=== PATIENT | female | born 1990 | race Caucasian/White ===

== ENCOUNTER 2017-06-03 21:25 | Emergency (ER) | payer SELFPAY ==
[2017-06-03] MEDS ORDERED: ONDANSETRON HCL/PF 4 MG/ 2ML VIAL IVP ONE (21:42)
[2017-06-03] MEDS ORDERED: LACTATED RINGERS 1,000 ML IV SCH (21:45)
[2017-06-03] MEDS ORDERED: LACTATED RINGERS 1,000 ML IV ONE (21:55)
[2017-06-03 22:08] LABS: BASOPHILS % 0.7 (0.0-1.5); EOSINOPHILS % 0.6 % (0.0-6.8); MEAN CORPUSCULAR HEMOGLOBIN 33.3 pg (28.0-34.0); MEAN CORPUSCULAR VOLUME 94.9 fl (80.0-100.0); MONOCYTES % 6.1 % (0.0-11.0); NEUTROPHILS # 8.5 # k/uL (1.4-7.7)
[2017-06-03 22:20] LABS: eGFR (African) > 60; eGFR (Non-African) > 60
[2017-06-03 22:33] VITALS: BP 119/66
[2017-06-03] MEDS ORDERED: metroNIDAZOLE 500 MG TABLET PO ONE (22:37)
--- NOTE | 2017-06-03 22:37 | ED Physician Documentation ---
Nausea/Vomiting/Diarrhea - HISTORIAN Historian: patient - HPI Stated Complaint: Nausea/Vomiting/Diarrhea Chief Complaint: Nausea,Vomiting,Diarrhea Additional Information: diarhes x 2 days, vomiting started few hours ago, denies any infectious symptoms , denies bad food. No pain Onset: days ago Duration: waxing, waning Timing: still present Context: denies: out of country travel, bad food, recent trauma Severity: mild Further Comments: no - Associated Symptoms Vomiting: mild. denies: bloody, blood-streaked, bilious, feculent Diarrhea: mild, watery Abdominal Pain: none, cramping - ROS CONST: denies: no problems, recent illness, fever, chills CVS/RESP: denies: shortness of breath, cough GI/: denies: dark urine, problems urinating EYES/ENT: none MS/SKIN/LYMPH: denies: joint pain NEURO/PSYCH: none - PAST HX Past History: none Other History: gall stones Surgeries/Procedures: cholecystectomy, Allergies/Adverse Reactions: Allergies Allergy/AdvReac Type Severity Reaction Status Date / Time No Known Allergies Allergy Unverified 06/03/17 21:38 Home Medications: Ambulatory Orders Medication Instructions Recorded NK [NK] 06/03/17 - SOCIAL HX Smoking History: cigarettes Alcohol Use: occasionally Drug Use: methamphetamines - FAMILY HX Family History: none - VITAL SIGNS Vital Signs: Vital Signs Temp Pulse Resp BP Pulse Ox 98.3 F 92 H 16 119/66 99 06/03/17 21:25 06/03/17 22:32 06/03/17 22:32 06/03/17 22:32 06/03/17 22:32 - REVIEWED ASSESSMENTS Nursing Assessment Reviewed: Yes Vitals Reviewed: Yes ED Results Lab/Radiology - Lab Results Lab Results: Lab Results 06/03/17 06/03/17 06/03/17 21:59 21:59 21:59 WBC 12.50 K/ul H K/ul (4.00-12.00) RBC 3.98 M/ul M/ul (3.90-5.20) Hgb 13.3 g/dL g/dL (12.0-16.0) Hct 37.8 % % (34.5-46.5) MCV 94.9 fl fl (80.0-100.0) MCH 33.3 pg pg (28.0-34.0) MCHC 35.1 g/dL g/dL (30.0-36.0) RDW 13.0 % % (11.3-14.3) Plt Count 199 K/mm3 K/mm3 (130-400) Neut % (Auto) 68.3 % % (39.0-79.0) Lymph % (Auto) 22.6 % % (16.0-50.0) [place] % (Auto) 6.1 % % (0.0-11.0) Eos % (Auto) 0.6 % % (0.0-6.8) Baso % (Auto) 0.7 (0.0-1.5) Neut # (Auto) 8.5 # k/uL H # k/uL (1.4-7.7) Lymph # (Auto) 2.8 # k/uL # k/uL (0.6-4.0) [place] # (Auto) 0.8 # k/uL # k/uL (0.0-0.9) Eos # (Auto) 0.1 # k/uL # k/uL (0.0-0.6) Baso # (Auto) 0.1 # k/uL # k/uL (0.0-0.5) Reactive Lymphs % 1.8 % % (0.0-5.0) Reactive Lymphs # 0.2 # k/uL # k/uL (0.0-0.8) Carbon Dioxide 27 mmol/L mmol/L (20-32) BUN 14 mg/dL mg/dL (10-26) Creatinine 0.6 mg/dL mg/dL (0.4-1.5) Estimated Creat Clear 152 Est GFR ( Amer) > 60 (60 - ) Est GFR (Non-Af Amer) > 60 (60 - ) Glucose 122 mg/dL H mg/dL (70-99) Calcium 9.7 mg/dL mg/dL (8.5-10.5) Total Bilirubin 0.6 mg/dL mg/dL (0.2-1.2) AST 17 U/L U/L (0-41) ALT 41 U/L U/L (0-45) Alkaline Phosphatase 81 U/L U/L (46-116) Total Protein 7.1 g/dL g/dL (6.0-8.5) Albumin 4.4 g/dL g/dL (3.0-5.5) Amylase 51 U/L U/L (20-104) Serum HCG, Qual Negative (NEGATIVE) - Radiology Radiology Impressions: neg - Orders Orders: ED Orders Category Date Time Status Place IV Lock 1T Care 06/03/17 21:49 Active ABDOMEN 1 VIEW [RAD] Stat Exams 06/03/17 21:42 Ordered AMYLASE Routine Lab 06/03/17 21:59 Completed CBC/PLATELET/DIFF Routine Lab 06/03/17 21:59 Completed CMP Routine Lab 06/03/17 21:59 Completed SERUM HCG Routine Lab 06/03/17 21:59 Completed URINALYSIS Routine Lab 06/03/17 Ordered Lactated Ringers [Ringers, Lactated] 1,000 ml Med 06/03/17 21:45 Ordered IV 1T Ondansetron HCl/Pf [Zofran 4 mg/2 ml] Med 06/03/17 21:42 Discontinued 4 mg IVP NOW ONE Nausea Physical Exam - EXAM General Appearance: no acute distress, alert EENT: ENT inspection normal, pharynx normal, no signs of dehydration Neck: normal inspection Respiratory: no resp distress, breath sounds normal CVS: reg rate & rhythm, heart sounds normal Abdomen: non-tender Back: non-tender Skin: warm/dry, normal color Extremities: non-tender Neuro/Psych: oriented X3 Discharge Clincal Impression: Nausea & vomiting Qualifiers: Vomiting type: unspecified Vomiting Intractability: non-intractable Qualified Code(s): R11.2 - Nausea with vomiting, unspecified Diarrhea Qualifiers: Diarrhea type: presumed infectious Qualified Code(s): A09 - Infectious gastroenteritis and colitis, unspecified Referrals: Primary Doctor,No [Primary Care Provider] - 2 Days Home Medications: Ambulatory Orders NK [NK] 06/03/17 Condition: Stable Disposition: 01 HOME, SELF-CARE Decision to Admit: NO Date of Decison to Admit: 06/03/17 Decision Time: 22:36
--- NOTE | 2017-06-03 22:39 | Diagnostic Imaging Report ---
[facility] [facility] [address] [facility] [address] [address] Report Submission Date: Jun 03, 2017 10:35:05 PM CDT Patient Study Name: ANDRZEJ GLASS Date: Jun 03, 2017 10:20:30 PM CDT Modality Type: CR Gender: F Description: ABDOMEN : 86 Institution: [facility] Physician: RIVER HINTON The 2 views of the abdomen Clinical history: Abdominal pain and nausea Findings: Prior cholecystectomy is noted. Bowel gas pattern is unremarkable. No abnormal calcifications identified. Impression: Negative Electronically signed on Jun 03, 2017 10:35:05 PM CDT by: Keenan ODELL
[2017-06-04 06:25] LABS: APPEARANCE,URINE CLEAR (CLEAR); COLOR,URINE YELLOW (YELLOW); OCCULT BLOOD,URINE NEGATIVE (NEGATIVE); URINE HCG NEGATIVE (NEGATIVE); UROBILINOGEN URINE 0.2 Eu (0.2-1.0)
== END 2017-06-03 23:00 | disposition home or self-care (01) ==
LOC: ED 21:25
DX: R11.2 Nausea with vomiting, unspecified (principal); A09 Infectious gastroenteritis and colitis, unspecified
CPT/HCPCS: 74000; 80053; 82150; 84703; 85025; J2405; J7120; 81002; 81025; 96361; 96374; 99283; S1016